=== PATIENT | male | born 1995 | race Two or more races ===

== ENCOUNTER 2023-11-09 10:38 | Emergency (ER) | payer MEDICAID ==
[2023-11-09] MEDS: Diphtheria,Pertussis(Acell),Tetanus Vaccine 0.5 ML Syringe IM ONE (11:20)
[2023-11-09] MEDS: Acetaminophen 500 MG Tab PO ONE (11:22)
[2023-11-09] MEDS: Lidocaine 1% 5 ML VIAL INJECT ONE (11:23)
== END 2023-11-09 11:36 | disposition home or self-care (01) ==
LOC: MW.ED 10:38
DX: S51.811A Laceration without foreign body of right forearm, initial encounter (principal); Z75.8 Other problems related to medical facilities and other health care; W26.8XXA Contact with other sharp object(s), not elsewhere classified, initial encounter
CPT/HCPCS: 12001; 99282; A9270; J3490

== ENCOUNTER 2023-11-18 11:33 | Emergency (ER) | payer SELFPAY | END 2023-11-18 12:05 | disposition home or self-care (01) | LOC: MW.ED 11:33 | DX: S51.811D Laceration without foreign body of right forearm, subsequent encounter (principal); X58.XXXD Exposure to other specified factors, subsequent encounter | CPT/HCPCS: 99281 ==